=== PATIENT | male | born 2005 | race Two or more races ===

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

== ENCOUNTER 2024-07-10 06:25 | Emergency (ER) | payer MEDICAID ==
[~2024-07-10] VITALS: Ht 165.1 cm; Wt 52.2 kg
--- NOTE | 2024-07-10 06:46 | ED.PDOC ---
History of Present Illness HPI Comments 18M BIBA w/ prior Hx of anxiety and a recent Hernia repair surgery on of 07/07/24 which may be associated to the c/c of anxiety. EMS report the pt told his parents "hey dad I feel like Im going to " as well as hyperventilating. Pt reported on having CP before going into the laparoscopic hernia repair on . Pt states that he was unable to sleep last night due from SOB and CP. SHx of appendectomy. Denies chills, fever, N/V/D, or other associated symptoms, modifiers, or recent injuries or sick contact at this time. Chief Complaint: Anxiety Time Seen by MD: 06:35 Reviewed Notes: Nurses Notes, Utilities Equipment Repairer Notes, Medications, Allergies Allergies: Coded Allergies: NO KNOWN ALLERGIES (Unverified , 03/09/22) Information Source: Patient, Emergency Med Personnel Mode of Arrival: EMS Severity: Moderate Timing: Hours Duration: Since onset, Hours Prehospital treatment: None Past Medical History PAST MEDICAL HISTORY: Anxiety Surgical History: Appendectomy, Hernia Repair Family History Family History: Reviewed,noncontributory to illness, Unknown Social History Smoker: Non-Smoker Alcohol: Denies ETOH Use Drugs: Denies Drug Use Lives In: Home Constitutional: denies: chills, diaphoresis, fatigue, fever, malaise, sweats, weakness, others EENTM: denies: blurred vision, double vision, ear bleeding, ear discharge, ear drainage, ear pain, ear ringing, eye pain, eye redness, hearing loss, mouth pain, mouth swelling, nasal discharge, nose bleeding, nose congestion, nose pain, photophobia, tearing, throat pain, throat swelling, voice changes, others Respiratory: reports: shortness of breath; denies: cough, hemoptysis, orthopnea, SOB at rest, SOB with excertion, stridor, wheezing, others Cardiovascular: reports: chest pain; denies: dizzy spells, diaphoresis, Dyspnea on exertion, edema, irregular heart beat, left arm pain, lightheadedness, palpitations, PND, syncope, others Gastrointestinal: denies: abdomen distended, abdominal pain, blood streaked bowels, constipated, diarrhea, dysphagia, difficulty swallowing, hematemesis, melena, nausea, poor appetite, poor fluid intake, rectal bleeding, rectal pain, vomiting, others Genitourinary: denies: burning, dysuria, flank pain, frequency, hematuria, incontinence, penile discharge, penile sore, pain, testicle pain, testicle swelling, urgency, others Neurological: denies: dizziness, fainting, headache, left sided numbness, left sided weakness, numbness, paresthesia, pre-existing deficit, right sided numbness, right sided weakness, seizure, speech problems, tingling, tremors, weakness, others Musculoskeletal: denies: back pain, gout, joint pain, joint swelling, muscle pain, muscle stiffness, neck pain, others Integumetry: denies: bruises, change in color, change in hair/nails, dryness, laceration, lesions, lumps, rash, wounds, others Allergic/Immunocompromised: denies: Difficulty Healing, Frequent Infections, Hives, Itching, others Hematologic/Lymphatic: denies: anemia, blood clots, easy bleeding, easy bruising, swollen glands, others Endocrine: denies: excessive hunger, excessive sweating, excessive thirst, excessive urination, flushing, intolerance to cold, intolerance to heat, une xplained weight gain, unexplained weight loss, others Psychiatric: reports: anxiety; denies: bipolar disorder, depression, hopeless, panic disorder, schizophrenia, sleepless, suicidal, others All Other Systems: Reviewed and Negative Physical Exam General Appearance: Mild Distress, Normal HEENT: Normal ENT Inspection, Pharynx Normal, TMs Normal Neck: Full Range of Motion, Non-Tender, Normal, Normal Inspection Respiratory: Chest Non-Tender, Lungs Clear, No Accessory Muscle Use, No Respiratory Distress, Normal Breath Sounds Cardiovascular: No Edema, No JVD, No Murmur, No Gallop, Normal Peripheral Pulses, Regular Rate/Rhythm Breast Exam: Deferred Gastrointestinal: No Organomegaly, Non Tender, No Pulsatile Mass, Normal Bowel Sounds, Soft Genitalia: Deferred Pelvic: Deferred Rectal: Deferred Extremities: No calf tenderness, Normal capillary refill, Normal inspection, Normal range of motion, Non-tender, No pedal edema Musculoskeletal : Apperance: Normal Neurologic: Alert, stock roller II-XII nml as Tested, No Motor Deficits, Normal Affect, Normal Mood, No Sensory Deficits Cerebellar Function: NOT DONE Reflexes: NOT DONE Skin: Dry, Normal Color, Warm Peripheral Pulses: 3+ Radial (R), 3+ Radial (L) Lymphatic: No Adenopathy Was a procedure done? Was a procedure done?: No Differential Dx Considerations may include: Anxiety Electrolyte imbalance X-Ray, Labs, Meds, VS Vital Signs Date Time Temp Pulse Resp B/P (MAP) Pulse Ox O2 Delivery O2 Flow Rate FiO2 07/10/24 07:22 103 18 111/81 (91) 93 07/10/24 07:22 103 16 93 Room Air* 0 21 07/10/24 06:31 16 97 Room Air* 0 21 07/10/24 06:31 98.4 78 16 109/71 (84) 97 Lab Test 07/10/24 06:47 Range/Units D-Dimer, Quantitative 0.47 0.0-0.49 mg/L FEU Patient alert. Recently had hernia surgery. Vitals stable. Answering all questions. Abdomen is soft nontender. No sign of any infection. He is anxious. Complaining of shortness a breath. Lungs clear. Heart rate within normal limits. Respiration within normal limits. Saturation pristine on room air. No leg swelling. D-dimer within normal limits. Explained to the patient. Was told to follow up with his primary care physician. Was told to come back if there is any problem. Time of 1ST Reevaluation: 07:05 Reevaluation 1ST: Improved Patient Education/Counseling: Diagnosis, Treatment, Prognosis Family Education/Counseling: No Family Present Departure 1 Departure Time of Disposition: 06:53 Impression: Primary Impression: Anxiety Additional Impression: Posttraumatic stress disorder Disposition: 01 HOME / SELF CARE / HOMELESS Condition: Good Discharged With: Self Critical Care Note Critical Care Time?: No Stability Stability form required: No Heart Score Heart Score: Heart Score Response (Comments) Value History N/A 0 EKG N/A 0 Age N/A 0 Risk Factors N/A 0 Troponin N/A 0 Total 0 I personally scribed for RAMÓN PITTMAN MD ([email or web address]) on 07/10/24 at 06:46. Electronically submitted by Alfred Bernstein ([email or web address]). RAMÓN PITTMAN MD Jul 10, 2024 06:46
[2024-07-10 07:22] VITALS: PULSE 103; RESP 16; O2SAT 93
[2024-07-10 09:21] VITALS: BP 128/76; PULSE 71; RESP 16; TEMP 98.1; O2SAT 98
== END 2024-07-10 09:25 | disposition home or self-care (01) ==
LOC: ER 06:25 → EDBD 06:25 → ER 09:25
DX: F43.10 Post-traumatic stress disorder, unspecified (principal); F41.9 Anxiety disorder, unspecified; Z98.890 Other specified postprocedural states
CPT/HCPCS: 36415; 85379